=== PATIENT | male | born 1955 | race Hispanic/Latino ===

== ENCOUNTER → 2020-10-30 | Outpatient (CLI) | payer OTHER ==
[~2020-10-30] MED LIST: ACET1TAB25 PO; ASPI-556 PO; IODOG TP; LEVO500T2 PO; LEVO50TA11 PO; LISI40TA4 PO; METO10TA41 PO; POLY17PO4 PO; Simethicone PO; TORS10TA18 PO; [UNRECOGNIZED DRUG - CODE] TP
== END | disposition home or self-care (01) ==
LOC: RAH 14:45
PROVIDERS: ATTEND Family Medicine
DX: I87.332 Chronic venous hypertension (idiopathic) with ulcer and inflammation of left lower extremity (principal)
CPT/HCPCS: 93971